=== PATIENT | female | born 2000 | race Two or more races ===

== ENCOUNTER 2020-07-14 08:30 | Outpatient (CLI) | payer OTHER | END 2020-07-14 08:35 | disposition home or self-care (01) | LOC: PPH VACUNA 08:30 | DX: Z23 Encounter for immunization (principal) ==

== ENCOUNTER 2021-05-29 08:00 | Outpatient (CLI) | payer OTHER | END 2021-05-29 08:30 | disposition home or self-care (01) | LOC: PPH VACUNA 08:00 | PROVIDERS: ATTEND Emergency Medicine Pediatric Emergency Medicine | DX: Z23 Encounter for immunization (principal) ==

== ENCOUNTER 2021-06-16 06:15 | Outpatient (CLI) | payer OTHER | END 2021-06-16 06:16 | disposition home or self-care (01) | LOC: LAB 06:15 | PROVIDERS: ATTEND Internal Medicine | DX: U07.1 COVID-19 (principal); B34.1 Enterovirus infection, unspecified ==

== ENCOUNTER 2021-12-14 14:48 | Outpatient (CLI) | payer OTHER | END 2021-12-14 14:58 | disposition home or self-care (01) | LOC: RAD 14:48 | PROVIDERS: ATTEND Obstetrics & Gynecology Obstetrics | DX: M99.01 Segmental and somatic dysfunction of cervical region (principal); M99.02 Segmental and somatic dysfunction of thoracic region; M99.03 Segmental and somatic dysfunction of lumbar region; M99.04 Segmental and somatic dysfunction of sacral region; M99.05 Segmental and somatic dysfunction of pelvic region ==